=== PATIENT | female | born 1940 | race Caucasian/White ===

== ENCOUNTER 2023-03-08 11:18 | Outpatient (CLI) | payer MEDICARE, SELFPAY ==
[2023-03-08 12:14] LABS: Alanine Aminotransferase 14 U/L (6-35); Aspartate Amino Transferase 27 U/L (14-36)
== END 2023-03-08 11:19 | disposition home or self-care (01) ==
LOC: ANHLAB 11:28
PROVIDERS: Visit Provider Podiatrist Foot & Ankle Surgery
DX: B35.1 Tinea unguium (principal)
CPT/HCPCS: 36415; 84450; 84460

== ENCOUNTER 2023-06-19 10:18 | Outpatient (CLI) | payer MEDICARE, OTHER, SELFPAY ==
[2023-06-19 11:08] LABS: Alanine Aminotransferase 14 U/L (6-35); Aspartate Amino Transferase 29 U/L (14-36)
== END 2023-06-19 10:19 | disposition home or self-care (01) ==
LOC: ANHLAB 10:27
PROVIDERS: Visit Provider Podiatrist Foot & Ankle Surgery
DX: B35.1 Tinea unguium (principal)
CPT/HCPCS: 36415; 84450; 84460

== ENCOUNTER 2024-04-11 10:01 | Outpatient (CLI) | payer MEDICARE, OTHER, SELFPAY ==
--- NOTE | ~2024-04-11 | CT_ITS ---
EXAMINATION: CT soft tissue neck w con DATE: 04/11/2024 10:34 INDICATION: Pharyngeal space mass. TECHNIQUE: Computed tomography (CT) of the neck was performed with 75 mL Omnipaque-350 intravenous co ntrast. Automated exposure control and iterative reconstruction technique were employed. The dose-erik gth product was 346.33 mGy-cm. COMPARISON: None FINDINGS: There is mild scarring at the lung apices. There are likely changes of ocular lens replacem ent surgeries. There is mucosal thickening in the paranasal sinuses. There are calcifications in the palatine tonsils. There is a 9 mm nodule in left thyroid lobe, likely not clinically significant. The re are no pathologically enlarged lymph nodes. There is severe cervical spondylosis. IMPRESSION: 1. Benign calcifications in the palatine tonsils. Reviewed, dictated and finalized at location A. FACILITATOR
[2024-04-11 10:27] LABS: Estimated Glomerular Filt Rate > 60
== END 2024-04-11 10:02 | disposition home or self-care (01) ==
LOC: ANHIMG 10:06
PROVIDERS: Visit Provider Family Medicine
DX: R22.1 Localized swelling, mass and lump, neck (principal); J35.8 Other chronic diseases of tonsils and adenoids
CPT/HCPCS: 70491; Q9967

== ENCOUNTER 2024-05-02 10:45 | Outpatient (CLI) | payer MEDICARE, OTHER, SELFPAY | END 2024-05-02 10:46 | disposition home or self-care (01) | LOC: ANHAUDIO 10:46 | PROVIDERS: PCP Family Medicine; Visit Provider Family Medicine | DX: H90.3 Sensorineural hearing loss, bilateral (principal) | CPT/HCPCS: 92557; 92567 ==

== ENCOUNTER 2024-09-20 09:30 | Outpatient (RCR) | payer SELFPAY | END 2024-09-20 23:59 | disposition home or self-care (01) | LOC: ANHAUDIO 09:30 | PROVIDERS: PCP Family Medicine; Visit Provider Family Medicine | DX: Z46.1 Encounter for fitting and adjustment of hearing aid (principal) | CPT/HCPCS: 99199; V5261 ==